=== PATIENT | male | born 1950 | race Caucasian/White ===

== ENCOUNTER 2024-01-28 08:35 | Outpatient (REF) | payer OTHER, SELFPAY ==
--- NOTE | ~2024-01-28 | XR_ITS ---
EXAMINATION: XR KNEE, LEFT CLINICAL INFORMATION: Pain COMPARISON: Knee radiographs 06/07/2023 TECHNIQUE: Two views of the left knee. 1 view of the bilateral knees standing. FINDINGS: RIGHT KNEE: No acute fracture or dislocation. Joint spaces are maintained. Soft tissues are unremarkable. LEFT KNEE: No acute fracture or dislocation. Moderate osteoarthritis of the knee with loss of medial compartment joint space. No joint effusion. Soft tissues are unremarkable. XR/XR knee LT 3V IMPRESSION: * No acute osseous abnormality. * Moderate osteophytosis of the left knee.
== END 2024-01-28 08:36 | disposition home or self-care (01) ==
LOC: HO.HOSX 08:35
PROVIDERS: Visit Provider Orthopaedic Surgery
DX: M17.12 Unilateral primary osteoarthritis, left knee (principal)
CPT/HCPCS: 73562

== ENCOUNTER 2024-01-28 08:41 | Outpatient (AMB) | payer OTHER, SELFPAY ==
[2024-01-28 08:57] VITALS: BMI 23.7
--- NOTE | 2024-01-28 08:57 | MHC.OFFVIS ---
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 Hx of Left Knee Arthroscopy 06/13/2020. Patient reports that he has recently noticed some increased pain with certain activities like ambulation of stairs and light jogging. He is active. Has tried bracing and PT Advil is taken occasionally, when needed. 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 Hx of Left Knee Arthroscopy 06/13/2020. Patient reports that he has recently noticed some increased pain with certain activities like ambulation of stairs and light jogging. He is active. Has tried bracing and PT Advil is taken occasionally, when needed. [facility] Surgical History (Updated 01/28/24 @ 09:01 by Rebeca Mirza CMA) Hx of appendectomy History of lumbar laminectomy (~1983) H/O left knee surgery (2019) Social History (Updated 01/28/24 @ 09:01 by Rebeca Mirza CMA) Current occupational status: retired Physical Exam Vital Signs: BMI result Body Mass Index 23.7 Const General: cooperative, healthy appearing, no acute distress, well developed and alert HEENT Head: Yes normal to inspection, Yes normocephalic and Yes atraumatic Mouth: moist mucous membranes Eyes General: appearance normal, both eyes and all related structures EOM: EOMs intact bilaterally Chest Other: no audible wheezing. Resp Other: No audible wheezing Effort & Inspection: normal respiratory effort Back/Spine/Pelvis Cervical Spine: normal cervical lordosis Skin General skin exam: no rashes or lesions noted Neuro General: no focal motor deficits Extrem Other: Full range of motion. Mild varus alignment. Minimal tenderness to palpation medial anterior left knee. Psych Appearance: grossly normal and well kempt Mental Status: mental status grossly normal Speech and movement: Normal speech and movement present Affect: normal affect Attitude: cooperative Results Reviewed Results Reviewed: I personally reviewed relevant radiographs. Mild left knee medial and anterior compartment OA Assessment & Plan Assessment & Plan (1) Arthritis of left knee: Code(s): M17.12 - Unilateral primary osteoarthritis, left knee Plan: This is a 73-year-old gentleman with mild left knee osteoarthritis and symptoms mostly associated with stairs. I discussed his x-rays and treatment options. He has not particularly bothered at this point. Most of his complaints have to do with discomfort in the morning and overall it is mild. I did send a prescription for meloxicam to his pharmacy. He will see me as needed. Orders: Orders XR knee standing BI Today M25.569 - Pain in unspecified knee Medications: New meloxicam 15 mg PO DAILY 30 tabs 2RF Coding Level of Care Code New Pt Level 4 (03426) Diagnoses Arthritis of left knee M17.12
== END 2024-01-28 10:37 | disposition home or self-care (01) ==
PROVIDERS: PCP Internal Medicine; Visit Provider Orthopaedic Surgery
DX: M17.12 Unilateral primary osteoarthritis, left knee (principal)
CPT/HCPCS: 99203